=== PATIENT | male | born 1965 | race Caucasian/White ===

== ENCOUNTER 2016-12-15 01:58 | Emergency (ER) | payer OTHER ==
[2016-12-15 03:32] VITALS: BP 145/84
== END 2016-12-15 03:32 | disposition home or self-care (01) ==
LOC: ED 01:58
DX: G89.29 Other chronic pain (principal); M25.561 Pain in right knee; M25.562 Pain in left knee; F41.9 Anxiety disorder, unspecified; F11.20 Opioid dependence, uncomplicated; M19.90 Unspecified osteoarthritis, unspecified site; F17.200 Nicotine dependence, unspecified, uncomplicated
CPT/HCPCS: J1885; Q0177